=== PATIENT | female | born 1990 | race Caucasian/White ===

== ENCOUNTER 2019-05-19 21:18 | Emergency (ER) | payer OTHER ==
[2019-05-19] MEDS ORDERED: THIAMINE 200 MG/2 ML INJ ONE (22:00)
[2019-05-19] MEDS ORDERED: NA CHLORIDE 0.9% 1,000 ML ONE (22:00)
[2019-05-19 22:35] LABS: Absolute Lymphocytes (CBC) 1.1 K/uL (0.7-4.9); Basophils % 0.4 % (0-1.3); Hematocrit 43.9 % (36.0-45.0); Lymphocytes % 16.9 % (15.3-44.8); RBC Red Blood Cell Count 5.03 M/uL (3.86-4.86)
[2019-05-19 23:51] LABS: ALT/SGPT 65 U/L (12-78); AST/SGOT 49 U/L (15-37); Albumin 3.3 g/dL (3.4-5.0); Alkaline Phosphatase 71 U/L (45-117); BUN Blood Urea Nitrogen 6 mg/dL (7-18); Bicarbonate 23 mmol/L (21-32); Bilirubin Direct 0.3 mg/dL (0-0.2); Bilirubin Total 0.8 mg/dL (0.2-1.0); Glucose Level 79 mg/dL (74-106); Lipase 58 U/L (73-393); Protein, Total 7.4 g/dL (6.4-8.2); Sodium Level 137 mmol/L (136-145)
[2019-05-20] MEDS ORDERED: NS KCL 20MEQ 1,000 ML IV ONE (00:24)
[2019-05-20 00:25] LABS: Urine Blood 1+ (NEG); Urine Glucose NEGATIVE (NEG); Urine Protein 1+ (NEG)
[2019-05-20 00:33] LABS: Urine Bacteria >50 /HPF (<20); Urine Culture Reflex Order NOT NEEDED; Urine RBC <5 /HPF (NONE SEEN)
--- NOTE | 2019-05-20 02:07 | EDPHYS ---
Physician Documentation [facility] Name: Mindi Mora Age: 28 yrs Sex: Female : 1990 Arrival Date: 05/19/2019 Time: 21:22 Bed 17 Private MD: ED Physician Garret Peguero HPI: 05/19 22:25 This 28 yrs old Female presents to ER via Ambulatory with complaints of jr8 Nausea, Dizziness. 22:25 The patient presents to the emergency department with nausea, vomiting. Onset: The jr8 symptoms/episode began/occurred gradually, 2 week(s) ago. Possible causes: gastric sleeve. The symptoms are aggravated by food , The symptoms are alleviated by nothing. Associated signs and symptoms: Pertinent positives: dizziness. Severity of symptoms: At their worst the symptoms were moderate in the emergency department the symptoms are unchanged. The patient has not experienced similar symptoms in the past. The patient has not recently seen a physician. Patient stated that she has gastric sleeve procedure completed this past December. Stated that about 2 weeks ago started to have persistent n/v. Now feeling dizzy. Was low on vitamin B1 with last labs. General Surgeon wanted her to come to ED for fluids and evaluation . 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 - Social history:: Smoking status: Patient/guardian denies using tobacco. - Ebola Screening: : Patient denies travel to an Ebola-affected area in the 21 days before illness onset. ROS: 22:25 Eyes: Negative for injury, pain, redness, and discharge, ENT: Negative for injury, jr8 pain, and discharge, Neck: Negative for injury, pain, and swelling, Cardiovascular: Negative for chest pain, palpitations, and edema, Respiratory: Negative for shortness of breath, cough, wheezing, and pleuritic chest pain, Back: Negative for injury and pain, MS/Extremity: Negative for injury and deformity, Skin: Negative for injury, rash, and discoloration. 22:25 Abdomen/GI: Positive for nausea and vomiting, Negative for abdominal pain, diarrhea, constipation, abdominal cramps, abdominal distension, hematemesis, black/tarry stool, rectal pain, rectal bleeding, bowel incontinence, flatulence. 22:25 Neuro: Positive for dizziness. Exam: 22:25 Eyes: Pupils equal round and reactive to light, extra-ocular motions intact. Lids and jr8 lashes normal. Conjunctiva and sclera are non-icteric and not injected. Cornea within normal limits. Periorbital areas with no swelling, redness, or edema. ENT: Nares patent. No nasal discharge, no septal abnormalities noted. Tympanic membranes are normal and external auditory canals are clear. Oropharynx with no redness, swelling, or masses, exudates, or evidence of obstruction, uvula midline. Mucous membranes moist. Neck: Trachea midline, no thyromegaly or masses palpated, and no cervical lymphadenopathy. Supple, full range of motion without nuchal rigidity, or vertebral point tenderness. No Meningismus. Cardiovascular: Regular rate and rhythm with a normal S1 and S2. No gallops, murmurs, or rubs. Normal PMI, no JVD. No pulse deficits. Respiratory: Lungs have equal breath sounds bilaterally, clear to auscultation and percussion. No rales, rhonchi or wheezes noted. No increased work of breathing, no retractions or nasal flaring. Abdomen/GI: Obese, Soft with mild epigastric tenderness. Normal bowel sounds. No distension or tympany. No guarding or rebound. Back: No spinal tenderness. No costovertebral tenderness. Full range of motion. Skin: Warm, dry with normal turgor. Normal color with no rashes, no lesions, and no evidence of cellulitis. MS/ Extremity: Pulses equal, no cyanosis. Neurovascular intact. Full, normal range of motion. Neuro: Awake and alert, GCS 15, oriented to person, place, time, and situation. Cranial nerves II-XII grossly intact. Motor strength 5/5 in all extremities. Sensory grossly intact. Cerebellar exam normal. Normal gait. Vital Signs: 21:38 BP 147 / 103; Pulse 89; Resp 18; Temp 97.3; Pulse Ox 99% on R/A; Weight 134.26 kg (R); aj1 Height 5 ft. 9 in. (175.26 cm) (R); 22:30 BP 103 / 80; Pulse 60; Resp 18; Pulse Ox 98% on R/A; Pain 0/10; aa1 05/20 00:30 BP 108 / 85; Pulse 80; Resp 16; Temp 97.5; Pulse Ox 100% on R/A; Pain 0/10; aa1 01:30 BP 108 / 74; Pulse 60; Resp 18; Pulse Ox 100% on R/A; aa1 02:34 BP 124 / 79; Pulse 65; Resp 16; Temp 97.8; Pulse Ox 99% on R/A; aa1 05/19 21:38 Body Mass Index 43.71 (134.26 kg, 175.26 cm) aj1 MDM: 05/19 21:50 Patient medically screened. 8 05/20 02:00 Differential diagnosis: Nonspecific abd pain, gastritis, cholecystitis, pancreatitis, jr8 gastric ulcers, vitamin deficiency, gastroparesis. Data reviewed: vital signs, nurses notes, lab test result(s), and as a result, I will discharge patient. Data interpreted: Pulse oximetry: on room air is 100 %. Interpretation: normal. 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 Response to treatment: the patient's symptoms have markedly improved after treatment, patient is well hydrated. ED course: Discussed differential with patient. Doing better. Will f/u with both GI and her General surgeon. Knows to continue vitamin supplementation at home as well. 05/19 21:57 Order name: CBC with Diff; Complete Time: 22:50 8 05/19 21:57 Order name: Basic Metabolic Panel; Complete Time: 00:15 05/19 21:57 Order name: LFT's; Complete Time: 00:15 05/19 21:57 Order name: Lipase; Complete Time: 00:15 8 05/20 00:10 Order name: Urine Microscopic Only; Complete Time: 00:54 mw2 05/20 00:16 Order name: Urine Dipstick--Ancillary (enter results); Complete Time: 00:28 mw2 05/19 21:57 Order name: IV; Complete Time: 22:36 jr8 05/19 21:58 Order name: US Abdomen Limited fc 05/19 21:58 Order name: Urine Test (obtain specimen); Complete Time: 00:10 jr8 05/19 21:58 Order name: Urine Dipstick-Ancillary (obtain specimen); Complete Time: 00:11 jr8 05/20 00:16 Order name: Urine --Ancillary (enter results); Complete Time: 00:28 mw2 Administered Medications: 05/19 22:20 Drug: NS 0.9% 1000 ml Route: IV; Rate: 1000 ml; Site: right forearm; aa1 23:30 Follow up: IV Status: Completed infusion; IV Intake: 1000ml aa 22:20 Drug: Thiamine 100 mg Route: IV; Rate: calculated rate; Site: right forearm; aa1 22:35 Follow up: IV Status: Completed infusion [facility] 05/20 00:30 Drug: NS 0.9% with KCl 20 mEq/L 1000 ml Route: IV; Rate: calculated rate; Site: right aa1 forearm; 02:32 Follow up: IV Status: Completed infusion; IV Intake: 1000ml aa Disposition: 08:37 Co-signature as Attending Physician, Garret Peguero MD I agree with the assessment and parrish plan of care. Disposition: 05/20/19 02:06 Discharged to Home. Impression: Nausea and vomiting, Hypokalemia. - Condition is Stable. - Discharge Instructions: Nausea and Vomiting, Adult, Hypokalemia. - Medication Reconciliation Form, Thank You Letter, Antibiotic Education, Prescription Opioid Use form. - Follow up: Private Physician; When: 1 - 2 days; Reason: Recheck today's complaints, Continuance of care, Re-evaluation by your physician. - Problem is new. - Symptoms have improved. Signatures: Dispatcher [employer] Nathalie Bishop RN RN [email or web address] Haley St RN RN aa1 Garret Peguero MD MD cha Roszak, Josh, PA PA jr8 Corrections: (The following items were deleted from the chart) 02:37 02:06 05/20/2019 02:06 Discharged to Home. Impression: Nausea and vomiting; aa1 Hypokalemia. Condition is Stable. Forms are Medication Reconciliation Form, Thank You Letter, Antibiotic Education, Prescription Opioid Use. Follow up: Private Physician; When: 1 - 2 days; Reason: Recheck today's complaints, Continuance of care, Re-evaluation by your physician. Problem is new. Symptoms have improved. jr8
--- NOTE | 2019-05-20 02:07 | ER ---
Nurse's Notes [facility] Name: Mindi Mora Age: 28 yrs Sex: Female : 1990 Arrival Date: 05/19/2019 Time: 21:22 Bed 17 Private MD: Diagnosis: Nausea and vomiting;Hypokalemia Presentation: 05/19 21:33 Presenting complaint: Patient states: "I'm a bariatric surgery patient from back in december and I've been throwing up bile for 2 weeks I saw my GP on Monday and she prescribed me ondansetron and since then I've been very dizzy and my vision won't focus on things. I called my surgeon this evening and he said he thought I was low on vitamin B1 and that I should come to the ER for some I've fluids and in addition my legs have been numb which started in my calves and has gone up to the top of my legs". Transition of care: patient was not received from another setting of care. Onset of symptoms was 2018. Risk Assessment: Do you want to hurt yourself or someone else? Patient reports no desire to harm self or others. Initial Sepsis Screen: Does the patient meet any 2 criteria? No. Patient's initial sepsis screen is negative. Does the patient have a suspected source of infection? No. Patient's initial sepsis screen is negative. Care prior to arrival: None. 21:33 Method Of Arrival: Ambulatory [facility] 21:33 Acuity: EDAGRD 3 aj1 Triage Assessment: 21:38 General: Appears in no apparent distress. comfortable, Behavior is calm, cooperative, aj1 appropriate for age. Pain: Denies pain. Neuro: Level of Consciousness is awake, alert, obeys commands, Oriented to person, place, time, situation. Cardiovascular: Patient's skin is warm and dry. Respiratory: Airway is patent Respiratory effort is even, unlabored, Respiratory pattern is regular, symmetrical. GI: Reports nausea. 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 - Social history:: Smoking status: Patient/guardian denies using tobacco. - Ebola Screening: : Patient denies travel to an Ebola-affected area in the 21 days before illness onset. Screenin:45 Abuse screen: Denies threats or abuse. Denies injuries from another. Nutritional aa1 screening: No deficits noted. Tuberculosis screening: No symptoms or risk factors identified. Fall Risk None identified. Assessment: 21:45 General: Appears in no apparent distress. comfortable, Behavior is calm, cooperative, aa1 appropriate for age. Pain: Denies pain. Neuro: Level of Consciousness is awake, alert, obeys commands, Oriented to person, place, time, situation, Moves all extremities. Full function Gait is steady, Speech is normal, Facial symmetry appears normal, Pupils are PERRLA, Numbness in right leg and left leg Reports dizziness. Cardiovascular: Heart tones S1 S2 present Rhythm is regular. Respiratory: Airway is patent Respiratory effort is even, unlabored, Respiratory pattern is regular, symmetrical. GI: Abdomen is obese, Abd is soft and non tender X 4 quads. Reports nausea, vomiting. : No signs and/or symptoms were reported regarding the genitourinary system. EENT: No signs and/or symptoms were reported regarding the EENT system. Derm: Skin is intact, is healthy with good turgor, Skin is pink, warm \\T\\ dry. Musculoskeletal: Circulation, motion, and sensation intact. Capillary refill < 3 seconds. 22:37 Reassessment: Patient appears in no apparent distress at this time. Patient and/or aa1 family updated on plan of care and expected duration. Pain level reassessed. Patient is alert, oriented x 3, equal unlabored respirations, skin warm/dry/pink. U/S at bedside. 23:12 Reassessment: Patient appears in no apparent distress at this time. Patient and/or aa1 family updated on plan of care and expected duration. Pain level reassessed. Patient is alert, oriented x 3, equal unlabored respirations, skin warm/dry/pink. Lab at bedside attempting to recollect blood specimen. 05/20 00:30 Reassessment: Patient appears in no apparent distress at this time. Patient and/or aa1 family updated on plan of care and expected duration. Pain level reassessed. Patient is alert, oriented x 3, equal unlabored respirations, skin warm/dry/pink. Awaiting provider reassessment. 01:30 Reassessment: Patient appears in no apparent distress at this time. Patient and/or aa1 family updated on plan of care and expected duration. Pain level reassessed. Patient is alert, oriented x 3, equal unlabored respirations, skin warm/dry/pink. IVF with potassium infusing; will continue to monitor. 02:34 Reassessment: Patient appears in no apparent distress at this time. Patient is alert, aa1 oriented x 3, equal unlabored respirations, skin warm/dry/pink. Discussed d/c \\T\\ f/u instructions with pt \\T\\ spouse; denies questions or concerns at this time. Ambulatory to lobby with steady gait Patient denies pain at this time. Patient states feeling better. Vital Signs: 05/19 21:38 BP 147 / 103; Pulse 89; Resp 18; Temp 97.3; Pulse Ox 99% on R/A; Weight 134.26 kg (R); aj1 Height 5 ft. 9 in. (175.26 cm) (R); 22:30 BP 103 / 80; Pulse 60; Resp 18; Pulse Ox 98% on R/A; Pain 0/10; aa1 05/20 00:30 BP 108 / 85; Pulse 80; Resp 16; Temp 97.5; Pulse Ox 100% on R/A; Pain 0/10; aa1 01:30 BP 108 / 74; Pulse 60; Resp 18; Pulse Ox 100% on R/A; aa1 02:34 BP 124 / 79; Pulse 65; Resp 16; Temp 97.8; Pulse Ox 99% on R/A; aa1 05/19 21:38 Body Mass Index 43.71 (134.26 kg, 175.26 cm) aj1 ED Course: 05/19 21:22 Patient arrived in ED. ds1 21:37 Triage completed. aj1 21:38 Arm band placed on Patient placed in an exam room. aj1 21:45 Patient has correct armband on for positive identification. Placed in gown. Bed in low aa1 position. Call light in reach. Pulse ox on. NIBP on. Warm blanket given. 21:50 Jorge Welch PA is PHCP. jr8 21:50 Garret Peguero MD is Attending Physician. jr8 21:[address], RN is Primary Nurse. aa1 22:15 Missed attempt(s): 22 gauge in left antecubital area. Bleeding controlled, band aid aa1 applied, catheter tip intact. 22:20 Initial lab(s) drawn, by me, sent to lab. Inserted saline lock: 22 gauge in right aa1 forearm, using aseptic technique. Blood collected. 22:51 Ultrasound completed. Patient tolerated well. sg3 22:51 US Abdomen Limited In Process Unspecified. EDMS 05/20 02:34 No provider procedures requiring assistance completed. IV discontinued, intact, aa1 bleeding controlled, No redness/swelling at site. Pressure dressing applied. Administered Medications: 05/19 22:20 Drug: NS 0.9% 1000 ml Route: IV; Rate: 1000 ml; Site: right forearm; aa1 23:30 Follow up: IV Status: Completed infusion; IV Intake: 1000ml aa1 22:20 Drug: Thiamine 100 mg Route: IV; Rate: calculated rate; Site: right forearm; aa1 22:35 Follow up: IV Status: Completed infusion aa1 05/20 00:30 Drug: NS 0.9% with KCl 20 mEq/L 1000 ml Route: IV; Rate: calculated rate; Site: right aa1 forearm; 02:32 Follow up: IV Status: Completed infusion; IV Intake: 1000ml aa1 Intake: 05/19 23:30 IV: 1000ml; Total: 1000ml. aa1 05/20 02:32 IV: 1000ml; Total: 2000ml. aa1 Outcome: 02:06 Discharge ordered by . jr8 02:34 Discharged to home ambulatory, with significant other. aa1 02:34 Condition: good 02:34 Discharge instructions given to patient, significant other, Instructed on discharge instructions, follow up and referral plans. medication usage, Demonstrated understanding of instructions, follow-up care, medications. 02:37 Patient left the ED. aa1 Signatures: Dispatcher [employer] EDMT Nathalie Draper, RN RN aj1 Haley St, RN RN aa1 Leatha Rebollar1 Jorge Welch PA PA jr8 Rebecca Arevalo sg3
[2019-05-20 02:58] VITALS: BP 124/79; TEMP 97.8; O2SAT 99
--- NOTE | 2019-05-20 07:11 | RAD REPORT ---
EXAM DESCRIPTION: US - Abdomen Exam Limited - 05/19/2019 10:51 pm CLINICAL HISTORY: Abdominal pain. COMPARISON: None. FINDINGS: Multiple gallstones. The gallbladder wall is not thickened. Gallbladder wall is not thicke amanda. The biliary tree is normal caliber. IMPRESSION: Cholelithiasis without evidence cholecystitis.
== END 2019-05-20 02:37 | disposition home or self-care (01) ==
LOC: ER 21:18
DX: E87.6 Hypokalemia (principal); Z88.2 Allergy status to sulfonamides
CPT/HCPCS: 96361; 85025; 80048; 36415; 81025; 80076; 83690; 76705; 96374; 99284; J3411; J7030; 81003; 81015

== ENCOUNTER 2021-06-21 08:58 | Emergency (ER) | payer BC, OTHER ==
--- OUTSIDE RECORDS SUMMARY | 2021-06-21 09:00 | XMS REPORT | Continuity of Care Document ---
:1990 Author Organization [facility] t Address [address] [place] [address] [address] [place] [address] Care Team Providers Name Role Phone Lab, Fam Pob I Attending Clinician Unavailable Zofia Camacho Attending Clinician Zofai HARRIS Attending Clinician Unavailable Payers Payer Name Policy Type Policy Number Effective Date Expiration Date S ource Problems This patient has no known problems. Allergies, Adverse Reactions, Alerts Allergy Allergy Status Severity Reaction(s) Onset Inactive Treating Comm ents Source Name Type Date Date Clinician NO KNOWN Drug Active Univers ALLERGIE Class ity of [facility] Social History Social Habit Start Date Stop Date Quantity Comments Source Sex Assigned At Uni versity [facility] Smoking Status Start Date Stop Date Source Unknown if ever smoked [facility] Medications This patient has no known medications. Procedures This patient has no known procedures. Encounters Start End Encounter Admission Attending Care Care Encounter Source Date/Time Date/Time Type Type Clinicians Facility Department ID 2020-04-23 2020-04-23 Laboratory Lab, Adc Fam Pob I [facility] [id number]. [id number] Univers 16:06:01 16:26:01 Only Dorothy Harris [facility] [id number] thee [facility] [id number] Jose as Professio [id number] [place] dical [address] Office [address] 2020-04-23 2020-04-23 Outpatient R [facility] [id number] Univers 16:00:00 16:00:00 DOROTHY aranda [facility] Results This patient has no known results.
--- NOTE | 2021-06-21 10:07 | RAD REPORT ---
EXAM DESCRIPTION: RAD - Chest Single View - 06/21/2021 9:45 am CLINICAL HISTORY: CHEST PAIN Chest pain. COMPARISON: No comparisons FINDINGS: Portable technique limits examination quality. The lungs are grossly clear. The heart is normal in size. No displaced fractures. IMPRESSION: No acute intrathoracic process suspected.
[2021-06-21 11:46] LABS: Urine Blood Negative (Negative); Urine Glucose Negative (Negative); Urine Protein Negative (Negative); Urine Specific Gravity 1.025 (1.005-1.030)
[2021-06-21 13:17] LABS: ALT/SGPT 8 U/L (12-78); Albumin 1.7 g/dL (3.4-5.0); Alkaline Phosphatase 34 U/L (45-117); BUN Blood Urea Nitrogen 9 mg/dL (7-18); Bicarbonate 17 mmol/L (21-32); Bilirubin Direct < 0.1 mg/dL (0-0.2); Bilirubin Total 0.3 mg/dL (0.2-1.0); Glucose Level 57 mg/dL (74-106); NT PRO-BNP 28 pg/mL (<125); Protein, Total 4.1 g/dL (6.4-8.2); Sodium Level 149 mmol/L (136-145); Troponin (Emerg Dept Use Only) < 0.02 ng/mL (0.0-0.045)
[2021-06-21 13:18] LABS: AST/SGOT 11 U/L (15-37); Magnesium 1.4 mg/dL (1.8-2.4)
[2021-06-21 13:19] LABS: Potassium 2.7 mmol/L (3.5-5.1)
[2021-06-21 13:50] LABS: Absolute Lymphocytes (CBC) 1.8 K/uL (0.7-4.9); Basophils % 1.3 % (0-1.3); Hematocrit 36.7 % (36.0-45.0); Lymphocytes % 37.5 % (15.3-44.8); MPV 8.9 fL (7.6-11.3)
[2021-06-21] MEDS ORDERED: KCL 20 MEQ/100 mL IVPB 20 MEQ/100 ML BAG IV ONE (13:54)
[2021-06-21] MEDS ORDERED: NA CHLORIDE 0.9% 1,000 ML ONE ×2 (13:54→15:52)
[2021-06-21] MEDS ORDERED: POTASSIUM 25 MEQ EFFERV TAB ONE (13:55)
[2021-06-21] MEDS ORDERED: MAGNESIUM SULFATE 1 gm IVPB 1 GM/100 ML BAG IV ONE (14:29)
--- NOTE | 2021-06-21 14:30 | ER ---
Nurse's Notes [facility] Name: Mindi Mora Age: 30 yrs Sex: Female : 1990 Arrival Date: 06/21/2021 Time: 09:00 Bed 16 Private MD: Diagnosis: Chest pain, unspecified;Hypokalemia;Hypomagnesemia Presentation: 06/21 09:05 Chief complaint: Patient states: Monday started feeling throat tightness, was a iw little difficult to breathe, then it started moving into her chest into sternum, has hx of anxiety and will get chest pressure but never has throat tightness, continued through Monday, now throat tightness is gone but chest pressure has continued, comes in waves , today has been constant, called [facility] and was prescribed hydroxyzine to help her relax and sleep. Coronavirus screen: At this time, the client does not indicate any symptoms associated with coronavirus-19. Ebola Screen: Patient negative for fever greater than or equal to 101.5 degrees Fahrenheit, and additional compatible Ebola Virus Disease symptoms Patient denies exposure to infectious person. Patient denies travel to an Ebola-affected area in the 21 days before illness onset. No symptoms or risks identified at this time. Initial Sepsis Screen: Does the patient meet any 2 criteria? No. Patient's initial sepsis screen is negative. Does the patient have a suspected source of infection? No. Patient's initial sepsis screen is negative. Risk Assessment: Do you want to hurt yourself or someone else? Patient reports no desire to harm self or others. Onset of symptoms was June 16, 2021. 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 - Social history:: Smoking status: Patient denies any tobacco usage or history of. Screenin:41 Abuse screen: Denies threats or abuse. Denies injuries from another. Nutritional 5 screening: No deficits noted. Tuberculosis screening: No symptoms or risk factors identified. Fall Risk None identified. Assessment: 09:40 General: Appears in no apparent distress. comfortable, well groomed, Behavior is calm, jh5 cooperative, appropriate for age. Pain: Complains of pain in chest Pain does not radiate. Pain Quality of pain is described as pressure, Pain began 2-3 days ago. Cardiovascular: No deficits noted. Capillary refill < 3 seconds Patient's skin is warm and dry. Respiratory: No deficits noted. Airway is patent Trachea midline Respiratory effort is even, unlabored, Respiratory pattern is regular, symmetrical. Vital Signs: 09:05 BP 126 / 78; Pulse 96; Resp 16; Temp 97.6; Pulse Ox 100% on R/A; iw 16:37 BP 122 / 76; Pulse 89; Resp 16; Temp 98.4; Pulse Ox 100% ; 5 ED Course: 09:00 Patient arrived in ED. ds1 09:08 Triage completed. iw 09:09 Arm band placed on. iw 09:11 Zeus Mitchell NP is PHCP. pm1 09:11 Carlos Gruber MD is Attending Physician. pm1 09:21 Tasha Meyers, TALA is Primary Nurse. 5 09:40 X-ray completed. Portable x-ray completed in exam room. md1 09:41 Patient has correct armband on for positive identification. Bed in low position. Call [facility] light in reach. Side rails up X 1. machine operator hop picker on. Pulse ox on. NIBP on. 09:43 No provider procedures requiring assistance completed. Patient maintains SpO2 [facility] saturation greater than 95% on room air. 09:45 XRAY Chest (1 view) In Process Unspecified. EDMS Administered Medications: 13:58 Drug: Potassium Chloride 20 mEq Route: IV; Rate: calculated rate; Site: right [facility] antecubital; 13:58 Drug: Potassium Effervescent Tablet 50 mEq Route: PO; 5 13:58 Drug: NS 0.9% 1000 ml Route: IV; Rate: 1000 ml; Site: right antecubital; [facility] 14:34 Drug: Magnesium Sulfate 1 grams Route: IVPB; Infused Over: 1 hrs; Site: right [facility] antecubital; 14:35 Drug: Pepcid (famotidine) 20 mg Route: IVP; Site: right antecubital; jh5 Outcome: 14:29 Discharge ordered by pm1 16:47 Patient left the ED. jh5 Signatures: Dispatcher [employer] EDMS Leatha Rebollar ds1 Dena Arauz, TALA RN Zeus Mitchell, CORRECTIONAL SECURITY OFFICER CORRECTIONAL SECURITY OFFICER pm1 Zainab Oro md1 Tasha Meyers RN RN jh5 Corrections: (The following items were deleted from the chart) 09:43 09:08 Home Meds: None; katrina 5
--- NOTE | 2021-06-21 14:30 | EDPHYS ---
Physician Documentation [facility] Name: Mindi Mora Age: 30 yrs Sex: Female : 1990 Arrival Date: 06/21/2021 Time: 09:00 Bed 16 Private MD: ED Physician Carlos Gruber HPI: 06/21 10:03 This 30 yrs old Female presents to ER via Ambulatory with complaints of Chest Pain. pm1 10:03 The patient or guardian reports chest pain that is located primarily in the mid-sternal pm1 area. The pain does not radiate. Associated signs and symptoms: Pertinent negatives: abdominal pain, cough, dizziness, headache, nausea, shortness of breath, vomiting. The chest pain is described as a pressure. Duration: The patient or guardian reports a single episode, that is still ongoing. Modifying factors: The symptoms are alleviated by nothing. the symptoms are aggravated by Possibly anxiety. Severity of pain: in the emergency department the pain is unchanged. 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 Throat pressure resolved then chest pain has continued until today. Typically she has anxiety episodes that are similar but the chest pain has continued. The patient has been recently seen by a physician: with similar presenting complaints, via telemedicine and was prescribed hydroxyzine. Patient unable to tell if hydroxyzine worked because it just made her go to sleep. 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 - Social history:: Smoking status: Patient denies any tobacco usage or history of. ROS: 10:03 Constitutional: Negative for fever, chills, and weight loss. pm1 10:03 Respiratory: Negative for shortness of breath, cough, wheezing, and pleuritic chest pain, Abdomen/GI: Negative for abdominal pain, nausea, vomiting, diarrhea, and constipation, Back: Negative for injury and pain, MS/Extremity: Negative for injury and deformity, Skin: Negative for injury, rash, and discoloration, Neuro: Negative for headache, weakness, numbness, tingling, and seizure. 10:03 Cardiovascular: Positive for chest pain, Negative for edema, palpitations. 10:03 All other systems are negative. Exam: 10:03 Constitutional: This is a well developed, well nourished patient who is awake, alert, pm1 and in no acute distress. Head/Face: Normocephalic, atraumatic. Cardiovascular: Regular rate and rhythm with a normal S1 and S2. No gallops, murmurs, or rubs. Normal PMI, no JVD. No pulse deficits. Respiratory: Lungs have equal breath sounds bilaterally, clear to auscultation and percussion. No rales, rhonchi or wheezes noted. No increased work of breathing, no retractions or nasal flaring. 10:03 Back: No spinal tenderness. No costovertebral tenderness. Full range of motion. Skin: Warm, dry with normal turgor. Normal color with no rashes, no lesions, and no evidence of cellulitis. MS/ Extremity: Pulses equal, no cyanosis. Neurovascular intact. Full, normal range of motion. 10:03 Abdomen/GI: Exam negative for acute changes, Inspection: abdomen appears normal, Palpation: abdomen is soft and non-tender, in all quadrants. 10:03 Neuro: Exam negative for acute changes, Orientation: is normal, Mentation: is normal, Motor: is normal, moves all fours. Vital Signs: 09:05 BP 126 / 78; Pulse 96; Resp 16; Temp 97.6; Pulse Ox 100% on R/A; iw 16:37 BP 122 / 76; Pulse 89; Resp 16; Temp 98.4; Pulse Ox 100% ; jh5 MDM: 09:11 Patient medically screened. pm1 13:29 ED course: Patient has not been taking her vitamins for post gastric sleeve surgery. pm1 Likely explains patient's abnormalities in electrolytes. 14:04 Data reviewed: vital signs. Data interpreted: Pulse oximetry: on room air is 100 %. pm1 Interpretation: normal. 14:04 Counseling: I had a detailed discussion with the patient and/or guardian regarding: the pm1 historical points, exam findings, and any diagnostic results supporting the discharge/admit diagnosis, lab results, radiology results, the need for outpatient follow up, to return to the emergency department if symptoms worsen or persist or if there are any questions or concerns that arise at home, [facility] [place] [facility]. Patient wants to have get food to address hypoglycemia. 06/21 09:20 Order name: Basic Metabolic Panel; Complete Time: 13:21 pm1 06/21 09:20 Order name: CBC with Diff; Complete Time: 13:55 pm1 06/21 09:20 Order name: LFT's; Complete Time: 13:21 pm1 06/21 09:20 Order name: Magnesium; Complete Time: 13:21 pm1 06/21 09:20 Order name: NT PRO-BNP; Complete Time: 13:21 pm1 06/21 09:20 Order name: Troponin (emerg Dept Use Only); Complete Time: 13:21 pm1 06/21 09:20 Order name: XRAY Chest (1 view); Complete Time: 10:12 pm1 06/21 11:47 Order name: Urine Dipstick-Ancillary; Complete Time: 12:08 EDMS 06/21 09:20 Order name: EKG; Complete Time: 09:21 pm1 06/21 09:20 Order name: Cardiac monitoring; Complete Time: 09:21 pm1 06/21 09:20 Order name: EKG - Nurse/Tech; Complete Time: 09:21 pm1 06/21 09:20 Order name: IV Saline Lock; Complete Time: 09:22 pm1 06/21 09:20 Order name: Labs collected and sent; Complete Time: 09:22 pm1 06/21 09:20 Order name: O2 Per Protocol; Complete Time: 09:22 pm1 06/21 09:20 Order name: O2 Sat Monitoring; Complete Time: 09:22 pm1 06/21 09:20 Order name: Urine Dipstick-Ancillary (obtain specimen); Complete Time: 11:41 pm1 06/21 09:20 Order name: Urine Test (obtain specimen); Complete Time: 11:41 pm1 06/21 09:50 Order name: Labs - recollect needed: recollect all tubes; Complete Time: 11:41 bd Administered Medications: 13:58 Drug: Potassium Chloride 20 mEq Route: IV; Rate: calculated rate; Site: right [facility] antecubital; 13:58 Drug: Potassium Effervescent Tablet 50 mEq Route: PO; [facility] 13:58 Drug: NS 0.9% 1000 ml Route: IV; Rate: 1000 ml; Site: right antecubital; [facility] 14:34 Drug: Magnesium Sulfate 1 grams Route: IVPB; Infused Over: 1 hrs; Site: right [facility] antecubital; 14:35 Drug: Pepcid (famotidine) 20 mg Route: IVP; Site: right antecubital; [facility] Disposition: 17:34 Co-signature as Attending Physician, Carlos Gruber MD I agree with the assessment and kdr plan of care. Disposition Summary: 06/21/21 14:29 Discharge Ordered Location: Home pm1 Problem: new pm1 Symptoms: have improved pm1 Condition: Stable pm1 Diagnosis - Chest pain, unspecified pm1 - Hypokalemia pm1 - Hypomagnesemia pm1 Followup: pm1 - With: Emergency Department - When: As needed - Reason: Worsening of condition Followup: pm1 - With: Private Physician - When: 2 - 3 days - Reason: Recheck today's complaints, Continuance of care, Re-evaluation by your physician Discharge Instructions: - Discharge Summary Sheet pm1 - Nonspecific Chest Pain, Adult pm1 - Potassium Content of Foods pm1 - Hypomagnesemia pm1 - Hypokalemia pm1 Forms: - Medication Reconciliation Form pm1 - Thank You Letter pm1 - Antibiotic Education pm1 - Prescription Opioid Use pm1 Signatures: Dispatcher [employer] EDMaryuri Stark Kevin, MD MD kdr Williams, Irene, RN RN Zeus Mitchell NP WHEELMAN pm1 Tasha Meyers RN RN 5 Corrections: (The following items were deleted from the chart) 09:43 09:08 Home Meds: None; [facility]
[2021-06-21 16:51] VITALS: O2SAT 100
[2021-06-21 16:54] VITALS: BP 122/76; TEMP 98.4
--- NOTE | 2021-06-23 08:09 | EKG ---
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
== END 2021-06-21 16:47 | disposition home or self-care (01) ==
LOC: ER 08:58
DX: E87.6 Hypokalemia (principal); E83.42 Hypomagnesemia; F41.9 Anxiety disorder, unspecified; Z88.2 Allergy status to sulfonamides; Z98.84 Bariatric surgery status
CPT/HCPCS: 93005; 85025; 80048; 36415; 83735; 80076; 81003; 84484; 83880; 71045; 96375; 96374; 99284; J3480; J3475; J7030 ×2